=== PATIENT | male | born 1950 | race Asian ===

== ENCOUNTER 2017-08-01 10:50 | Inpatient (IN) | payer MEDICAID ==
[~2017-08-01] VITALS: Ht 162.6 cm; Wt 69.9 kg
[2017-08-01 10:29] VITALS: BP 130/77
[2017-08-01] MEDS ORDERED: Morphine Sulfate 4mg/ml Inj IVP ONE (11:00)
[2017-08-01 11:06] LABS: BILIRUBIN, URINE NEGATIVE (NEGATIVE); COLOR,URINE PALE YELLOW; GLUCOSE, URINE (UA) NEGATIVE (NEGATIVE); KETONES,URINE NEGATIVE (NEGATIVE); LEUKOCYTE ESTERASE ,URINE 1+ (NEGATIVE); NITRITE,URINE NEGATIVE (NEGATIVE); PH,URINE 7 (4.5-8.0); PROTEIN,URINE NEGATIVE (NEGATIVE); UROBILINOGEN,URINE NORMAL MG/DL (0.0-1.0)
[2017-08-01 11:22] LABS: APPEARANCE,URINE SLIGHTLY CLOUDY
--- NOTE | 2017-08-01 12:14 | Emergency Room Report ---
History of Present Illness General Chief Complaint: Abdominal Pain Source: Patient Present Illness HPI 67-year-old male, history of kidney stones, presenting with right-sided abdominal pain for 2 days. States that he also saw blood in his urine. No fever no chills. No nausea or vomiting. Pain is constant, 10 out of 10 Allergies: Coded Allergies: No Known Allergies (Unverified , 08/01/17) Patient History Past Medical History: see triage record Past Surgical History: none Pertinent Family History: none Reviewed Nursing Documentation: PMH: Agreed, PSxH: Agreed Review of Systems All Other Systems: negative except mentioned in HPI Physical Exam Vital Signs Date Time Temp Pulse Resp B/P (MAP) Pulse Ox O2 Delivery O2 Flow Rate FiO2 08/01/17 10:19 98.2 78 16 125/72 98 Room Air 98.2 Sp02 EP Interpretation: reviewed, normal General Appearance: alert, GCS 15, non-toxic, moderate distress Head: normocephalic, atraumatic Eyes: bilateral eye normal inspection, bilateral eye PERRL, bilateral eye EOMI ENT: normal ENT inspection, normal pharynx, normal voice, moist mucus membranes Neck: normal inspection, full range of motion, supple Respiratory: normal inspection, lungs clear, normal breath sounds, no respiratory distress, no retraction, no wheezing, speaking full sentences, chest symmetrical Cardiovascular #1: normal inspection, regular rate, rhythm, no edema, normal capillary refill Cardiovascular #2: 2+ radial (R), 2+ radial (L) Gastrointestinal: other - Right lower quadrant abdominal tenderness, no guarding no rebound, no CVA tenderness bilaterally Genitourinary: no CVA tenderness Musculoskeletal: normal inspection, back normal, normal range of motion, non- tender Neurologic: normal inspection, alert, oriented x3, responsive, motor strength/ tone normal, sensory intact, normal gait, speech normal Psychiatric: normal inspection, judgement/insight normal, memory normal Skin: normal inspection, normal color, no rash, warm/dry, well hydrated, normal turgor Medical Decision Making Diagnostic Impression: Primary Impression: Nephrolithiasis Additional Impression: Intractable abdominal pain ER Course 67-year-old male, right-sided abdominal pain, hematuria DDX: Kidney stones, UTI, pyelonephritis, AAA, appendicitis, diverticulitis Plan: Obtain labs, ua, EKG, CT ER course: Patient has been monitored during ED stay, HD stable Given fluids and morphine patient with large R pelvis stone Disposition: Patient is to be admitted to [facility] D/W hospitalist Dr Maldonado Please note that this Emergency Department Report was dictated using walkbycorn husker machine operator technology software, occasionally this can lead to erroneous entry secondary to interpretation by the dictation equipment. EKG Diagnostic Results EP Interpretation: Yes Rate sinus bradycardia Rhythm: NSR ST Segments: No acute changes ASA given to patient: No Rhythm Strip EP Interpretation: Yes Rate: 60 Rhythm: NSR, no PVCs, no ectopy Laboratory Tests Test 08/01/17 10:40 08/01/17 12:30 Urine Color Pale yellow Urine Appearance Slightly cloudy Urine pH 7 (4.5-8.0) Urine Specific [place] 1.005 (1.005-1.035) Urine Protein Negative (NEGATIVE) Urine Glucose (UA) Negative (NEGATIVE) Urine Ketones Negative (NEGATIVE) Urine Occult Blood 5+ (NEGATIVE) H Urine Nitrite Negative (NEGATIVE) Urine Bilirubin Negative (NEGATIVE) Urine Urobilinogen Normal MG/DL (0.0-1.0) Urine Leukocyte Esterase 1+ (NEGATIVE) H Urine RBC 30-40 /HPF (0 - 0) H Urine WBC 0-2 /HPF (0 - 0) Urine Squamous Epithelial Cells None /LPF (NONE/OCC) Urine Bacteria Occasional /HPF (NONE) White Blood Count 6.2 K/UL (4.8-10.8) Red Blood Count 4.46 M/UL (4.70-6.10) L Hemoglobin 14.1 G/DL (14.2-18.0) L Hematocrit 41.5 % (42.0-52.0) L Mean Corpuscular Volume 93 FL (80-99) Mean Corpuscular Hemoglobin 31.7 PG (27.0-31.0) H Mean Corpuscular Hemoglobin Concent 34.1 G/DL (32.0-36.0) Red Cell Distribution Width 12.0 % (11.6-14.8) Platelet Count 226 K/UL (150-450) Mean Platelet Volume 5.8 FL (6.5-10.1) L Neutrophils (%) (Auto) 65.8 % (45.0-75.0) Lymphocytes (%) (Auto) 22.1 % (20.0-45.0) Monocytes (%) (Auto) 8.3 % (1.0-10.0) Eosinophils (%) (Auto) 2.3 % (0.0-3.0) Basophils (%) (Auto) 1.5 % (0.0-2.0) Prothrombin Time 9.8 SEC (9.30-11.50) Prothrombin Time INR 0.9 (0.9-1.1) PTT 28 SEC (23-33) Sodium Level 141 MMOL/L (136-145) Potassium Level 3.8 MMOL/L (3.5-5.1) Chloride Level 108 MMOL/L (98-107) H Carbon Dioxide Level 29 MMOL/L (21-32) Anion Gap 4 mmol/L (5-15) L Blood Urea Nitrogen 9 mg/dL (7-18) Creatinine 0.7 MG/DL (0.55-1.30) Estimate Glomerular Filtration Rate > 60 mL/min (>60) Glucose Level 96 MG/DL (74-106) Calcium Level 8.7 MG/DL (8.5-10.1) Total Bilirubin 0.5 MG/DL (0.2-1.0) Aspartate Amino Transferase (AST) 18 U/L (15-37) Alanine Aminotransferase (ALT) 33 U/L (12-78) Alkaline Phosphatase 56 U/L (46-116) Total Protein 6.6 G/DL (6.4-8.2) Albumin 3.3 G/DL (3.4-5.0) L Globulin 3.3 g/dL Albumin/Globulin Ratio 1.0 (1.0-2.7) Lipase 194 U/L (73-393) CT/MRI/US Diagnostic Results CT/MRI/US Diagnostic Results : Imaging Test Ordered: CT abdo pelvis Impression Findings: 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 [place] of the right kidney is deviated. The right kidney is [id number] degrees along its long axis, with the hilum facing laterally. Within the right renal pelvis, there is an aggregation of multiple large calculi. The largest of these measures 24 x 7 mm. This extends to a slight extent into an interpolar region infundibulum. There is no hydronephrosis. There is slight infiltration of the peripelvic and proximal periureteral fat. No ureteral calculus demonstrated. 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 The left kidney is normally situated. No left renal or ureteral calculi demonstrated. No left hydronephrosis or hydroureter. Lack of IV contrast limits assessment of the renal parenchyma. The left kidney demonstrates an upper pole and a lower pole cyst. No right renal mass or cyst demonstrated. The prostate is somewhat prominent, contains calcifications. The bladder is unremarkable. Lack of IV contrast limits assessment of the other solid organs. The liver demonstrates a cyst in segment IVb, as well as other subcentimeter low- attenuation lesions which are too small to characterize. The gallbladder, bile ducts, pancreas, spleen, adrenals are unremarkable. No retroperitoneal or mesenteric mass or adenopathy. No pelvic mass or adenopathy. The appendix is normal. No evidence of diverticulosis or diverticulitis. No small bowel distention. No free or loculated intraperitoneal air or fluid. The duodenum, stomach, distal esophagus are unremarkable. The heart is mildly enlarged. The lung bases demonstrate posterior dependent atelectatic changes. The bones are unremarkable except for degenerative spondylosis changes of the lower lumbar spine. Impression: Multiple large right renal pelvic calculi. No evidence of ureteral calculi or hydronephrosis Infiltration of the right renal parapelvic and proximal periureteral fat, could indicate a component of pyelitis/ureteritis related to the above Abnormal location and axis of the right kidney, as described Incidental finding of left renal cysts Hepatic cyst. Subcentimeter low-attenuation hepatic lesions which are too small to characterize. No further follow-up necessary Mild cardiomegaly Bilateral posterior dependent pulmonary atelectatic changes Other findings as noted, including degenerative spondylosis, prostate calcifications Last Vital Signs Date Time Temp Pulse Resp B/P (MAP) Pulse Ox O2 Delivery O2 Flow Rate FiO2 08/01/17 11:39 97.8 08/01/17 10:29 65 19 130/77 9 Room Air Disposition: ADMITTED INPATIENT Condition: Irving Figueredo M.D. Aug 01, 2017 12:13
--- NOTE | 2017-08-01 12:22 | Diagnostic Imaging Report ---
Indication: Right-sided flank pain, hematuria, history of kidney stones Technique: Spiral acquisitions obtained through the abdomen and pelvis. No oral or IV contrast utilized, per urinary stone protocol. Multiplanar reconstructions were generated. Total dose length product 602.71 mGycm. CTDIvol(s) 12.1 mGy. 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 [place] of the right kidney is deviated. The right kidney is degrees along its long axis, with the hilum facing laterally. Within the right renal pelvis, there is an aggregation of multiple large calculi. The largest of these measures 24 x 7 mm. This extends to a slight extent into an interpolar region infundibulum. There is no hydronephrosis. There is slight infiltration of the peripelvic and proximal periureteral fat. No ureteral calculus demonstrated. 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 The left kidney is normally situated. No left renal or ureteral calculi demonstrated. No left hydronephrosis or hydroureter. Lack of IV contrast limits assessment of the renal parenchyma. The left kidney demonstrates an upper pole and a lower pole cyst. No right renal mass or cyst demonstrated. The prostate is somewhat prominent, contains calcifications. The bladder is unremarkable. Lack of IV contrast limits assessment of the other solid organs. The liver demonstrates a cyst in segment IVb, as well as other subcentimeter low-attenuation lesions which are too small to characterize. The gallbladder, bile ducts, pancreas, spleen, adrenals are unremarkable. No retroperitoneal or mesenteric mass or adenopathy. No pelvic mass or adenopathy. The appendix is normal. No evidence of diverticulosis or diverticulitis. No small bowel distention. No free or loculated intraperitoneal air or fluid. The duodenum, stomach, distal esophagus are unremarkable. The heart is mildly enlarged. The lung bases demonstrate posterior dependent atelectatic changes. The bones are unremarkable except for degenerative spondylosis changes of the lower lumbar spine. Impression: Multiple large right renal pelvic calculi. No evidence of ureteral calculi or hydronephrosis Infiltration of the right renal parapelvic and proximal periureteral fat, could indicate a component of pyelitis/ureteritis related to the above Abnormal location and axis of the right kidney, as described Incidental finding of left renal cysts Hepatic cyst. Subcentimeter low-attenuation hepatic lesions which are too small to characterize. No further follow-up necessary Mild cardiomegaly Bilateral posterior dependent pulmonary atelectatic changes Other findings as noted, including degenerative spondylosis, prostate calcifications The CT scanner at [facility] is accredited by the [employer] and the scans are performed using protocols designed to limit radiation exposure to as low as reasonably achievable to attain images of sufficient resolution adequate for diagnostic evaluation.
[2017-08-01 12:30] VITALS: BP 139/70
[2017-08-01 13:02] LABS: BASOPHILS % (AUTO) 1.5 % (0.0-2.0); EOSINOPHILS % (AUTO) 2.3 % (0.0-3.0); HEMATOCRIT 41.5 % (42.0-52.0); HEMOGLOBIN 14.1 G/DL (14.2-18.0); LYMPHOCYTES % (AUTO) 22.1 % (20.0-45.0); MEAN CORPUSCULAR VOLUME 93 FL (80-99); MONOCYTES % (AUTO) 8.3 % (1.0-10.0); NEUTROPHILS % (AUTO) 65.8 % (45.0-75.0); PLATELET COUNT 226 K/UL (150-450); RED BLOOD COUNT 4.46 M/UL (4.70-6.10); WHITE BLOOD COUNT 6.2 K/UL (4.8-10.8)
[2017-08-01 13:05] LABS: INR 0.9 (0.9-1.1)
[2017-08-01 13:08] LABS: ANION GAP 4 mmol/L (5-15); BLOOD UREA NITROGEN 9 mg/dL (7-18); CALCIUM 8.7 MG/DL (8.5-10.1); CARBON DIOXIDE 29 MMOL/L (21-32); CHLORIDE 108 MMOL/L (98-107); CREATININE 0.7 MG/DL (0.55-1.30); POTASSIUM 3.8 MMOL/L (3.5-5.1); SODIUM 141 MMOL/L (136-145)
[2017-08-01 13:12] LABS: ALANINE AMINOTRANSFERASE 33 U/L (12-78); ALBUMIN 3.3 G/DL (3.4-5.0); ALKALINE PHOSPHATASE 56 U/L (46-116); ASPARTATE AMINO TRANSFERASE 18 U/L (15-37); BILIRUBIN,TOTAL 0.5 MG/DL (0.2-1.0)
[2017-08-01] MEDS ORDERED: cefTRIAXone 1 GM in NS 55 ML IVPB ONE (13:30)
[2017-08-01 14:00] VITALS: BP 114/62
[2017-08-01] MEDS ORDERED: NKM (14:00)
[2017-08-01 16:00] VITALS: BP 118/64
[2017-08-01 20:00] VITALS: BP 114/69
[2017-08-02] VITALS: BP 112/70
[2017-08-02 04:00] VITALS: BP 114/74
[2017-08-02 08:07] VITALS: BP 111/68
[2017-08-02 09:41] LABS: BASOPHILS % (AUTO) 1.5 % (0.0-2.0); EOSINOPHILS % (AUTO) 3.1 % (0.0-3.0); HEMATOCRIT 43.5 % (42.0-52.0); HEMOGLOBIN 14.9 G/DL (14.2-18.0); LYMPHOCYTES % (AUTO) 27.4 % (20.0-45.0); MEAN CORPUSCULAR VOLUME 93 FL (80-99); NEUTROPHILS % (AUTO) 59.9 % (45.0-75.0); PLATELET COUNT 249 K/UL (150-450); RED BLOOD COUNT 4.68 M/UL (4.70-6.10); RED CELL DISTRIBUTION WIDTH 12.3 % (11.6-14.8)
[2017-08-02 10:08] LABS: ALANINE AMINOTRANSFERASE 38 U/L (12-78); ALBUMIN 3.3 G/DL (3.4-5.0); ALBUMIN/GLOBULIN RATIO 0.9 (1.0-2.7); ALKALINE PHOSPHATASE 58 U/L (46-116); ANION GAP 6 mmol/L (5-15); ASPARTATE AMINO TRANSFERASE 20 U/L (15-37); BILIRUBIN,TOTAL 0.5 MG/DL (0.2-1.0); BLOOD UREA NITROGEN 13 mg/dL (7-18); CALCIUM 8.8 MG/DL (8.5-10.1); CARBON DIOXIDE 32 MMOL/L (21-32); CHLORIDE 106 MMOL/L (98-107); CREATININE 0.9 MG/DL (0.55-1.30); POTASSIUM 3.6 MMOL/L (3.5-5.1); SODIUM 143 MMOL/L (136-145)
[2017-08-02 12:15] VITALS: BP 107/71
[2017-08-02] MEDS ORDERED: Morphine Sulfate 4mg/ml Inj IVP PRN (14:45)
[2017-08-02] MEDS ORDERED: Nitroglycerin Subl 0.4mg tab SL PRN (14:45)
[2017-08-02] MEDS ORDERED: Morphine Sulfate 4mg/ml Inj IV PRN (14:45)
[2017-08-02] MEDS ORDERED: Mylanta II UD 30ml ORAL PRN (14:45)
[2017-08-02] MEDS ORDERED: Miralax 17gm pkt ORAL PRN (14:45)
--- NOTE | 2017-08-02 14:48 | Consultation ---
History of Present Illness General Date patient seen: Aug 02, 2017 Chief Complaint: Abdominal Pain Reason for Consultation: inpatient management Present Illness HPI 67-year-old male, history of kidney stones, presenting with right-sided abdominal pain for 2 days. States that he also saw blood in his urine. No fever no chills. No nausea or vomiting. Pain is constant, 10 out of 10 Allergies: Coded Allergies: No Known Allergies (Unverified , 08/01/17) Medication History Scheduled No Known Medications* (NKM - No Known Medications*), 0 ., (Reported) Patient History Healthcare decision maker Resuscitation status Full Code Advanced Directive on File Past Medical/Surgical History Past Medical/Surgical History: (1) Nephrolithiasis Review of Systems Gastrointestinal: Reports: abdominal pain All Other Systems: negative except mentioned in HPI Physical Exam General Appearance: WD/WN Lines, tubes and drains: central line HEENT: normocephalic, atraumatic Neck: normal alignment Respiratory/Chest: chest wall non-tender, lungs clear Cardiovascular/Chest: normal peripheral pulses, normal rate Abdomen: non tender Genitourinary/Rectal: normal rectal exam Last 24 Hour Vital Signs Date Time Temp Pulse Resp B/P (MAP) Pulse Ox O2 Delivery O2 Flow Rate FiO2 08/02/17 12:15 98.2 74 20 107/71 96 Room Air 98.2 08/02/17 08:07 98.1 75 21 111/68 95 Room Air 98.1 08/02/17 04:00 97.9 71 20 114/74 94 97.9 08/02/17 00:00 97.8 65 19 112/70 93 97.8 08/01/17 20:00 97.7 65 19 114/69 94 97.7 08/01/17 16:00 97.7 57 20 118/64 99 97.7 Intake and Output 08/01/17 08/02/17 19:00 07:00 Intake Total 1575 ml Balance 1575 ml Intake Oral 520 ml IV Total 1055 ml # Voids 4 4 Laboratory Tests Test 08/02/17 08:00 White Blood Count 5.0 K/UL (4.8-10.8) Red Blood Count 4.68 M/UL (4.70-6.10) L Hemoglobin 14.9 G/DL (14.2-18.0) Hematocrit 43.5 % (42.0-52.0) Mean Corpuscular Volume 93 FL (80-99) Mean Corpuscular Hemoglobin 31.7 PG (27.0-31.0) H Mean Corpuscular Hemoglobin Concent 34.2 G/DL (32.0-36.0) Red Cell Distribution Width 12.3 % (11.6-14.8) Platelet Count 249 K/UL (150-450) Mean Platelet Volume 5.9 FL (6.5-10.1) L Neutrophils (%) (Auto) 59.9 % (45.0-75.0) Lymphocytes (%) (Auto) 27.4 % (20.0-45.0) Monocytes (%) (Auto) 8.0 % (1.0-10.0) Eosinophils (%) (Auto) 3.1 % (0.0-3.0) H Basophils (%) (Auto) 1.5 % (0.0-2.0) Sodium Level 143 MMOL/L (136-145) Potassium Level 3.6 MMOL/L (3.5-5.1) Chloride Level 106 MMOL/L (98-107) Carbon Dioxide Level 32 MMOL/L (21-32) Anion Gap 6 mmol/L (5-15) Blood Urea Nitrogen 13 mg/dL (7-18) Creatinine 0.9 MG/DL (0.55-1.30) Estimat Glomerular Filtration Rate > 60 mL/min (>60) Glucose Level 130 MG/DL (74-106) H Calcium Level 8.8 MG/DL (8.5-10.1) Total Bilirubin 0.5 MG/DL (0.2-1.0) Aspartate Amino Transf (AST/SGOT) 20 U/L (15-37) Alanine Aminotransferase (ALT/SGPT) 38 U/L (12-78) Alkaline Phosphatase 58 U/L (46-116) Total Protein 6.8 G/DL (6.4-8.2) Albumin 3.3 G/DL (3.4-5.0) L Globulin 3.5 g/dL Albumin/Globulin Ratio 0.9 (1.0-2.7) L Height (Feet): 5 Height (Inches): 4.00 Weight (Pounds): 154 Medications Current Medications Medications (Trade) Dose Ordered Sig/Mae Route PRN Reason Start Time Stop Time Status Last Admin Dose Admin Acetaminophen (Tylenol) 650 mg Q4H PRN ORAL Mild Pain/Temp > 100.5 08/01/17 14:45 08/31/17 14:44 Ceftriaxone Sodium 1 gm/ Sodium Chloride 55 ml @ 110 mls/hr Q24H IVPB 08/02/17 14:00 08/09/17 23:59 Assessment/Plan Problem List: (1) Nephrolithiasis ICD Codes: N20.0 - Calculus of kidney SNOMED: 28770196, [id number] (2) Intractable abdominal pain ICD Codes: R10.9 - Unspecified abdominal pain SNOMED: 12608802, [id number] Assessment/Plan npo Iv [id number] Urology evaluation pain management RAÚL ESCALANTE Aug 02, 2017 14:48
--- NOTE | 2017-08-02 15:10 | Cardiology Report ---
APPROVED REPORT EKG Measurement Heart [id number] Sinus bradycardia Minimal voltage criteria for LVH, may be normal variant Borderline ECG
[2017-08-02] MEDS: cefTRIAXone 1 GM in NS 55 ML IVPB SCH (15:55)
[2017-08-02] MEDS: D5 1/2NS 1,000 ML IV SCH (15:56)
[2017-08-02 16:00] VITALS: BP 110/72
[2017-08-02 17:08] LABS: APPEARANCE,URINE CLEAR; BILIRUBIN, URINE NEGATIVE (NEGATIVE); COLOR,URINE PALE YELLOW; GLUCOSE, URINE (UA) 1+ (NEGATIVE); KETONES,URINE NEGATIVE (NEGATIVE); LEUKOCYTE ESTERASE ,URINE NEGATIVE (NEGATIVE); NITRITE,URINE NEGATIVE (NEGATIVE); PH,URINE 7 (4.5-8.0); PROTEIN,URINE 1+ (NEGATIVE); UROBILINOGEN,URINE NORMAL MG/DL (0.0-1.0)
[2017-08-02 20:00] VITALS: BP 117/75
--- NOTE | 2017-08-02 20:12 | Consultation ---
History of Present Illness General Date patient seen: Aug 02, 2017 Time patient seen: 20:08 Chief Complaint: Abdominal Pain Reason for Consultation: inpatient management Present Illness HPI 67 yo male with right sided abdominal pain yesterday. Feels better after one dose of Morphine yesterday. Tolerating diet. Known history of kidney stones. Allergies: Coded Allergies: No Known Allergies (Unverified , 08/01/17) Medication History Scheduled No Known Medications* (NKM - No Known Medications*), 0 ., (Reported) Patient History Limited by: language barrier, age History Provided By: Patient, Medical Record Healthcare decision maker Resuscitation status Full Code Advanced Directive on File Past Medical/Surgical History Past Medical/Surgical History: (1) Nephrolithiasis Review of Systems All Other Systems: negative except mentioned in HPI Physical Exam General Appearance: no apparent distress, alert HEENT: atraumatic Cardiovascular/Chest: normal peripheral pulses, normal rate Abdomen: non tender, soft Neurologic: alert, oriented x 3 Last 24 Hour Vital Signs Date Time Temp Pulse Resp B/P (MAP) Pulse Ox O2 Delivery O2 Flow Rate FiO2 08/02/17 16:00 99.0 69 20 110/72 95 99.0 08/02/17 12:15 98.2 74 20 107/71 96 Room Air 98.2 08/02/17 08:07 98.1 75 21 111/68 95 Room Air 98.1 08/02/17 04:00 97.9 71 20 114/74 94 97.9 08/02/17 00:00 97.8 65 19 112/70 93 97.8 Intake and Output 08/01/17 08/02/17 19:00 07:00 Intake Total 1575 ml Balance 1575 ml Intake Oral 520 ml IV Total 1055 ml # Voids 4 4 # Bowel Movements 1 Laboratory Tests Test 08/02/17 08:00 08/02/17 16:30 White Blood Count 5.0 K/UL (4.8-10.8) Red Blood Count 4.68 M/UL (4.70-6.10) L Hemoglobin 14.9 G/DL (14.2-18.0) Hematocrit 43.5 % (42.0-52.0) Mean Corpuscular Volume 93 FL (80-99) Mean Corpuscular Hemoglobin 31.7 PG (27.0-31.0) H Mean Corpuscular Hemoglobin Concent 34.2 G/DL (32.0-36.0) Red Cell Distribution Width 12.3 % (11.6-14.8) Platelet Count 249 K/UL (150-450) Mean Platelet Volume 5.9 FL (6.5-10.1) L Neutrophils (%) (Auto) 59.9 % (45.0-75.0) Lymphocytes (%) (Auto) 27.4 % (20.0-45.0) Monocytes (%) (Auto) 8.0 % (1.0-10.0) Eosinophils (%) (Auto) 3.1 % (0.0-3.0) H Basophils (%) (Auto) 1.5 % (0.0-2.0) Sodium Level 143 MMOL/L (136-145) Potassium Level 3.6 MMOL/L (3.5-5.1) Chloride Level 106 MMOL/L (98-107) Carbon Dioxide Level 32 MMOL/L (21-32) Anion Gap 6 mmol/L (5-15) Blood Urea Nitrogen 13 mg/dL (7-18) Creatinine 0.9 MG/DL (0.55-1.30) Estimat Glomerular Filtration Rate > 60 mL/min (>60) Glucose Level 130 MG/DL (74-106) H Calcium Level 8.8 MG/DL (8.5-10.1) Total Bilirubin 0.5 MG/DL (0.2-1.0) Aspartate Amino Transf (AST/SGOT) 20 U/L (15-37) Alanine Aminotransferase (ALT/SGPT) 38 U/L (12-78) Alkaline Phosphatase 58 U/L (46-116) Total Protein 6.8 G/DL (6.4-8.2) Albumin 3.3 G/DL (3.4-5.0) L Globulin 3.5 g/dL Albumin/Globulin Ratio 0.9 (1.0-2.7) L Urine Color Pale yellow Urine Appearance Clear Urine pH 7 (4.5-8.0) Urine Specific [place] 1.015 (1.005-1.035) Urine Protein 1+ (NEGATIVE) H Urine Glucose (UA) 1+ (NEGATIVE) H Urine Ketones Negative (NEGATIVE) Urine Occult Blood 4+ (NEGATIVE) H Urine Nitrite Negative (NEGATIVE) Urine Bilirubin Negative (NEGATIVE) Urine Urobilinogen Normal MG/DL (0.0-1.0) Urine Leukocyte Esterase Negative (NEGATIVE) Urine RBC 5-10 /HPF (0 - 0) H Urine WBC 0-2 /HPF (0 - 0) Urine Squamous Epithelial Cells None /LPF (NONE/OCC) Urine Bacteria Few /HPF (NONE) Height (Feet): 5 Height (Inches): 4.00 Weight (Pounds): 154 Medications Current Medications Medications (Trade) Dose Ordered Sig/Mae Route PRN Reason Start Time Stop Time Status Last Admin Dose Admin Acetaminophen (Tylenol) 650 mg Q4H PRN ORAL Mild Pain/Temp > 100.5 08/01/17 14:45 08/31/17 14:44 Al Hydroxide/Mg Hydroxide (Mylanta II) 30 ml Q6H PRN ORAL dyspepsia 08/02/17 14:45 09/01/17 14:44 Ceftriaxone Sodium 1 gm/ Sodium Chloride 55 ml @ 110 mls/hr Q24H IVPB 08/02/17 14:00 08/09/17 23:59 08/02/17 15:55 Dextrose (Dextrose 50%) STAT PRN IV Hypoglycemia 08/02/17 14:45 09/01/17 14:44 Dextrose/Sodium Chloride 1,000 ml @ 75 mls/hr [id number] IV 08/02/17 14:45 09/01/17 14:44 08/02/17 15:56 Diphenhydramine HCl (Benadryl) 25 mg Q6H PRN ORAL Itching/Pruritis 08/02/17 14:45 09/01/17 14:44 Morphine Sulfate (Morphine Sulfate) 2 mg EVERY 4 HOURS PRN IVP Moderat Pain (Pain Scale 4-6) 08/02/17 14:45 08/09/17 14:44 Morphine Sulfate (Morphine Sulfate) 4 mg EVERY 2 HOURS PRN IV For Severe Pain (7-10) 08/02/17 14:45 08/09/17 14:44 Nitroglycerin (Ntg) 0.4 mg Q5M X 3 DOSES PRN SL Prn Chest Pain 08/02/17 14:45 09/01/17 14:44 Ondansetron HCl (Zofran) 4 mg Q6H PRN IVP Nausea & Vomiting 08/02/17 14:45 09/01/17 14:44 Polyethylene Glycol (Miralax) 17 gm HSPRN PRN ORAL Constipation 08/02/17 14:45 09/01/17 14:44 Temazepam (Restoril) 15 mg HSPRN PRN ORAL Insomnia 08/02/17 14:45 08/09/17 14:[address]: 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 no hydro, no hydroureter Assessment/Plan Status: stable Assessment/Plan 67 yo male with right sided renal colic. 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 Pain is gone and not taking pain meds. Hematuria due to likely passed stone fragment. Normal renal function. Patient' s kidney stone would require complex percutaneous surgery given pelvic location. Not equipped at this hospital to do that. Would need treatment at higher level of care. Apparently, uninsured. 1. case management eval to activate medicare? 2. no intervention, needs higher level of care to address stone 3. not actively obstructed or in pain. Gabriel Hayden M.D. Aug 02, 2017 20:12
--- NOTE | 2017-08-02 22:45 | Consultation ---
DATE OF CONSULTATION: 08/02/2017 INFECTIOUS DISEASE CONSULTATION CONSULTING PHYSICIAN: Lazaro Hartley M.D. PRIMARY ATTENDING PHYSICIAN: Milla Maher M.D. REASON FOR CONSULTATION: Urinary tract infection and pyelonephritis. HISTORY OF PRESENT ILLNESS: The patient is a 67-year-old male admitted from home yesterday because of right-sided abdominal pain and hematuria. The patient has history of kidney stones since 1980s. Pain usually comes with activity and walking. It is on and off in right side of the abdomen. No fever. No chills. No systemic syndrome. PAST MEDICAL HISTORY: Kidney stone and had a surgery on the neck before. MEDICATIONS: Getting Tylenol. Got a dose of ceftriaxone in the ER. ALLERGIES: No known drug allergies. SOCIAL HISTORY: . Denies alcohol, drug abuse, or smoking. 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 He is from [place]. Lives in [facility] for 40 years. REVIEW OF SYSTEMS: No fever. No chills. No nausea. No vomiting. No coughing. No chest pain. Abdominal pain as mentioned. Hematuria. No other symptoms. PHYSICAL EXAMINATION: VITAL SIGNS: No fever, temperature 98.2, pulse 74, and blood pressure 107/71. GENERAL APPEARANCE: Seems normal weight, well developed, in no acute distress. HEAD AND NECK: Clarissa conjunctivae. HEART: S1 and S2 regular. LUNGS: Clear. ABDOMEN: Soft and nontender. EXTREMITIES: No edema. NEUROLOGIC: Awake, alert, and oriented x3. No focal signs. LABORATORY AND DIAGNOSTIC DATA: Sodium 143, potassium 3.6, chloride 106, bicarb 32, BUN 13, creatinine 0.9, and glucose 130. WBC 5, hemoglobin 14.9, hematocrit 43.5, and platelets 249. The patient had a CT scan of the abdomen and pelvis without contrast that showed infiltration of right renal parapelvic and proximal periureteral fat, may be pyelitis or urethritis, hepatic cyst, and mild cardiomegaly. IMPRESSION: 1. Nephrolithiasis. Mainly in the right kidney, there are multiple large stones. 2. May have pyelitis or ureteritis. RECOMMENDATION: We will continue the Rocephin. We will suggest for urologic evaluation. We will obtain urine culture. At the end of my exam, I thank Dr. Maher for involving me in the care of this patient. Lazaro Hartley M.D. DR: OMAR JOB#: [id number] CC: [email or web address]
[2017-08-03] VITALS: BP 109/70
--- NOTE | 2017-08-03 02:00 | History and Physical Report ---
DATE OF ADMISSION: 08/01/2017 NOTE: POOR AUDIO HISTORY OF PRESENT ILLNESS: The patient basically comes in and is admitted for nephrolithiasis, has been having abdominal pain and hematuria for one day. However, this problem is going on intermittently off and on for the past 3 months. The patient does have a history of kidney stones. He is admitted for flank pain. However, he was found to have a large right-sided pelvic renal stone, admitted to Med/Surg. The patient denies having chills. Denies any nausea, vomiting, or diarrhea. Denies rectal bleeding. Denies orthopnea. PAST MEDICAL HISTORY: Significant for kidney stones. PAST SURGICAL HISTORY: None. MEDICATIONS: None. FAMILY HISTORY: Noncontributory. SOCIAL HISTORY: Denies smoking, alcohol, or illicit drugs. REVIEW OF SYSTEMS: HEENT: headaches. RESPIRATORY: Denies shortness of breath or cough. CARDIOVASCULAR: Denies chest pain or orthopnea. GASTROINTESTINAL: . Hematuria for one day. Also, he has been having intermittent abdominal pain for the past three months. EXTREMITIES: Denies pain . CENTRAL NERVOUS SYSTEM: No change in vision or speech pattern. PHYSICAL EXAMINATION: VITAL SIGNS: Temperature 97.7 degrees, pulse is 67, and blood pressure 118/64. HEENT: PERRLA. NECK: Supple. No lymphadenopathy. CHEST: Clear to auscultation. CARDIOVASCULAR: Regular rate and rhythm. ABDOMEN: Soft, nontender, and nondistended. No organomegaly. Bowel sounds are present. No rebound tenderness. EXTREMITIES: No edema. NEUROLOGIC: Reflexes equal on both sides. Moves all four extremities. . LABORATORY AND DIAGNOSTIC DATA: WBC of 6.3, hemoglobin 14.1, and platelets of 226. Sodium 141, potassium 3.8, BUN of 9, creatinine of 0.7, and glucose of 96. ASSESSMENT AND PLAN: Kidney stones and large right-sided pelvic renal stone. I have asked and Dr. Mckeon to see the patient for the antibiotic treatment of the kidney stones as well as for possible removal as well as for borderline low potassium. Milla Maher M.D. DR: ASMITA JOB#: [id number] CC:
[2017-08-03 04:00] VITALS: BP 115/71
[2017-08-03] MEDS: D5 1/2NS 1,000 ML IV SCH ×2 (04:52→17:44)
[2017-08-03 07:33] LABS: BASOPHILS % (AUTO) 1.5 % (0.0-2.0); EOSINOPHILS % (AUTO) 4.5 % (0.0-3.0); HEMATOCRIT 40.6 % (42.0-52.0); HEMOGLOBIN 14.2 G/DL (14.2-18.0); MEAN CORPUSCULAR VOLUME 92 FL (80-99); MONOCYTES % (AUTO) 8.4 % (1.0-10.0); NEUTROPHILS % (AUTO) 53.6 % (45.0-75.0); PLATELET COUNT 236 K/UL (150-450); RED CELL DISTRIBUTION WIDTH 12.2 % (11.6-14.8); WHITE BLOOD COUNT 4.7 K/UL (4.8-10.8)
[2017-08-03 07:49] LABS: ALANINE AMINOTRANSFERASE 24 U/L (12-78); ALBUMIN/GLOBULIN RATIO 0.9 (1.0-2.7); ALKALINE PHOSPHATASE 50 U/L (46-116); AMYLASE 60 U/L (25-115); ANION GAP 8 mmol/L (5-15); ASPARTATE AMINO TRANSFERASE 17 U/L (15-37); BILIRUBIN,TOTAL 0.3 MG/DL (0.2-1.0); BLOOD UREA NITROGEN 12 mg/dL (7-18); CALCIUM 8.7 MG/DL (8.5-10.1); CARBON DIOXIDE 26 MMOL/L (21-32); CHLORIDE 107 MMOL/L (98-107); CREATININE 0.8 MG/DL (0.55-1.30); POTASSIUM 3.7 MMOL/L (3.5-5.1); SODIUM 141 MMOL/L (136-145)
[2017-08-03 07:53] LABS: PHOSPHORUS 3.4 MG/DL (2.5-4.9)
[2017-08-03 08:32] VITALS: BP 145/70
[2017-08-03 12:00] VITALS: BP 125/74
--- NOTE | 2017-08-03 13:22 | Infectious Diseases Prog Note ---
Assessment/Plan Assessment/Plan A; Nephrolithiasis ? Pyelitis, Ureteritis P: Continue Rocephin If cultures remain negative will stop antibiotic Subjective ROS Limited/Unobtainable: No Gastrointestinal/Abdominal: Reports: other - on and off pain in right upper abdomen Genitourinary: Reports: hematuria Allergies: Coded Allergies: No Known Allergies (Unverified , 08/01/17) Objective Vital Signs Last 24 Hour Vital Signs Date Time Temp Pulse Resp B/P (MAP) Pulse Ox O2 Delivery O2 Flow Rate FiO2 08/03/17 11:06 98.6 08/03/17 10:36 98.6 08/03/17 08:32 98.6 90 18 145/70 98 Room Air 98.6 08/03/17 04:00 98.3 56 19 115/71 95 Room Air 98.3 08/03/17 00:00 97.7 62 20 109/70 95 97.7 08/02/17 20:00 97.7 92 20 117/75 95 97.7 08/02/17 16:00 99.0 69 20 110/72 95 99.0 Height (Feet): 5 Height (Inches): 4.00 Weight (Pounds): 154 Microbiology Date/Time Source Procedure Growth Status 08/02/17 16:30 Urine,Clean Catch Urine Culture - Preliminary NO GROWTH Resulted Laboratory Tests Test 08/02/17 16:30 08/03/17 06:00 Urine Color Pale yellow Urine Appearance Clear Urine pH 7 (4.5-8.0) Urine Specific [place] 1.015 (1.005-1.035) Urine Protein 1+ (NEGATIVE) H Urine Glucose (UA) 1+ (NEGATIVE) H Urine Ketones Negative (NEGATIVE) Urine Occult Blood 4+ (NEGATIVE) H Urine Nitrite Negative (NEGATIVE) Urine Bilirubin Negative (NEGATIVE) Urine Urobilinogen Normal MG/DL (0.0-1.0) Urine Leukocyte Esterase Negative (NEGATIVE) Urine RBC 5-10 /HPF (0 - 0) H Urine WBC 0-2 /HPF (0 - 0) Urine Squamous Epithelial Cells None /LPF (NONE/OCC) Urine Bacteria Few /HPF (NONE) White Blood Count 4.7 K/UL (4.8-10.8) L Red Blood Count 4.40 M/UL (4.70-6.10) L Hemoglobin 14.2 G/DL (14.2-18.0) Hematocrit 40.6 % (42.0-52.0) L Mean Corpuscular Volume 92 FL (80-99) Mean Corpuscular Hemoglobin 32.2 PG (27.0-31.0) H Mean Corpuscular Hemoglobin Concent 34.9 G/DL (32.0-36.0) Red Cell Distribution Width 12.2 % (11.6-14.8) Platelet Count 236 K/UL (150-450) Mean Platelet Volume 6.1 FL (6.5-10.1) L Neutrophils (%) (Auto) 53.6 % (45.0-75.0) Lymphocytes (%) (Auto) 32.0 % (20.0-45.0) Monocytes (%) (Auto) 8.4 % (1.0-10.0) Eosinophils (%) (Auto) 4.5 % (0.0-3.0) H Basophils (%) (Auto) 1.5 % (0.0-2.0) Activated Partial Thromboplast Time 30 SEC (23-33) Sodium Level 141 MMOL/L (136-145) Potassium Level 3.7 MMOL/L (3.5-5.1) Chloride Level 107 MMOL/L (98-107) Carbon Dioxide Level 26 MMOL/L (21-32) Anion Gap 8 mmol/L (5-15) Blood Urea Nitrogen 12 mg/dL (7-18) Creatinine 0.8 MG/DL (0.55-1.30) Estimat Glomerular Filtration Rate > 60 mL/min (>60) Glucose Level 108 MG/DL (74-106) H Calcium Level 8.7 MG/DL (8.5-10.1) Phosphorus Level 3.4 MG/DL (2.5-4.9) Magnesium Level 2.1 MG/DL (1.8-2.4) Total Bilirubin 0.3 MG/DL (0.2-1.0) Aspartate Amino Transf (AST/SGOT) 17 U/L (15-37) Alanine Aminotransferase (ALT/SGPT) 24 U/L (12-78) Alkaline Phosphatase 50 U/L (46-116) Total Protein 6.3 G/DL (6.4-8.2) L Albumin 3.0 G/DL (3.4-5.0) L Globulin 3.3 g/dL Albumin/Globulin Ratio 0.9 (1.0-2.7) L Amylase Level 60 U/L (25-115) Lipase 149 U/L (73-393) Current Medications Medications (Trade) Dose Ordered Sig/Mae Route PRN Reason Start Time Stop Time Status Last Admin Dose Admin Acetaminophen (Tylenol) 650 mg Q4H PRN ORAL Mild Pain/Temp > 100.5 08/01/17 14:45 08/31/17 14:44 Al Hydroxide/Mg Hydroxide (Mylanta II) 30 ml Q6H PRN ORAL dyspepsia 08/02/17 14:45 09/01/17 14:44 Ceftriaxone Sodium 1 gm/ Sodium Chloride 55 ml @ 110 mls/hr Q24H IVPB 08/02/17 14:00 08/09/17 23:59 08/02/17 15:55 Dextrose (Dextrose 50%) STAT PRN IV Hypoglycemia 08/02/17 14:45 09/01/17 14:44 Dextrose/Sodium Chloride 1,000 ml @ 75 mls/hr [id number] IV 08/02/17 14:45 09/01/17 14:44 08/03/17 04:52 Diphenhydramine HCl (Benadryl) 25 mg Q6H PRN ORAL Itching/Pruritis 08/02/17 14:45 09/01/17 14:44 Morphine Sulfate (Morphine Sulfate) 2 mg EVERY 4 HOURS PRN IVP Moderat Pain (Pain Scale 4-6) 08/02/17 14:45 08/09/17 14:44 Morphine Sulfate (Morphine Sulfate) 4 mg EVERY 2 HOURS PRN IV For Severe Pain (7-10) 08/02/17 14:45 08/09/17 14:44 08/03/17 10:36 Nitroglycerin (Ntg) 0.4 mg Q5M X 3 DOSES PRN SL Prn Chest Pain 08/02/17 14:45 09/01/17 14:44 Ondansetron HCl (Zofran) 4 mg Q6H PRN IVP Nausea & Vomiting 08/02/17 14:45 09/01/17 14:44 Polyethylene Glycol (Miralax) 17 gm HSPRN PRN ORAL Constipation 08/02/17 14:45 09/01/17 14:44 Temazepam (Restoril) 15 mg HSPRN PRN ORAL Insomnia 08/02/17 14:45 08/09/17 14:44 JOHNSON BAH Aug 03, 2017 13:22
[2017-08-03] MEDS: cefTRIAXone 1 GM in NS 55 ML IVPB SCH (13:24)
[2017-08-03 15:56] VITALS: BP 117/72
[2017-08-03 20:00] VITALS: BP 115/74
--- NOTE | 2017-08-03 21:27 | General Progress Note ---
Assessment/Plan Problem List: (1) Nephrolithiasis ICD Codes: N20.0 - Calculus of kidney SNOMED: 53263382, [id number] Status: progressing Assessment/Plan per urologist lacey is not equipped to do surgery to remove kidney stone needs higher level of care per urology so will dc in am if ok w urology Subjective Allergies: Coded Allergies: No Known Allergies (Unverified , 08/01/17) Subjective flank pain Objective Last 24 Hour Vital Signs Date Time Temp Pulse Resp B/P (MAP) Pulse Ox O2 Delivery O2 Flow Rate FiO2 08/03/17 20:00 98.1 65 19 115/74 93 Room Air 98.1 08/03/17 15:56 98.5 64 20 117/72 99 Room Air 98.5 08/03/17 12:00 97.7 66 18 125/74 95 97.7 08/03/17 11:06 98.6 08/03/17 10:36 98.6 08/03/17 08:32 98.6 90 18 145/70 98 Room Air 98.6 08/03/17 04:00 98.3 56 19 115/71 95 Room Air 98.3 08/03/17 00:00 97.7 62 20 109/70 95 97.7 Intake and Output 08/02/17 08/03/17 19:00 07:00 Intake Total 1405 ml 825 ml Balance 1405 ml 825 ml Intake Oral 1200 ml IV Total 205 ml 825 ml # Voids 4 5 Laboratory Tests 08/03/17 06:00: White Blood Count 4.7L, Red Blood Count 4.40L, Hemoglobin 14.2, Hematocrit 40.6L , Mean Corpuscular Volume 92, Mean Corpuscular Hemoglobin 32.2H, Mean Corpuscular Hemoglobin Concent 34.9, Red Cell Distribution Width 12.2, Platelet Count 236, Mean Platelet Volume 6.1L, Neutrophils (%) (Auto) 53.6, Lymphocytes ( %) (Auto) 32.0, Monocytes (%) (Auto) 8.4, Eosinophils (%) (Auto) 4.5H, Basophils (%) (Auto) 1.5, Activated Partial Thromboplast Time 30, Sodium Level 141, Potassium Level 3.7, Chloride Level 107, Carbon Dioxide Level 26, Anion Gap 8, Blood Urea Nitrogen 12, Creatinine 0.8, Estimat Glomerular Filtration Rate > 60, Glucose Level 108H, Calcium Level 8.7, Phosphorus Level 3.4, Magnesium Level 2.1, Total Bilirubin 0.3, Aspartate Amino Transf (AST/SGOT) 17, Alanine Aminotransferase (ALT/SGPT) 24, Alkaline Phosphatase 50, Total Protein 6.3L, Albumin 3.0L, Globulin 3.3, Albumin/Globulin Ratio 0.9L, Amylase Level 60 , Lipase 149 Height (Feet): 5 Height (Inches): 4.00 Weight (Pounds): 154 Cardiovascular: normal rate Abdomen: tender Milla Maher MD Aug 03, 2017 21:27
[2017-08-04] VITALS: BP 131/71
[2017-08-04 04:00] VITALS: BP 128/74
[2017-08-04] MEDS: D5 1/2NS 1,000 ML IV SCH (05:33)
[2017-08-04 08:00] VITALS: BP 129/75
[2017-08-04] MEDS ORDERED: Tubing IV Secondary IV ONE (11:59)
[2017-08-04] MEDS ORDERED: D5 1/2NS 1000ml IV ONE (11:59)
[2017-08-04 12:00] VITALS: BP 131/77
--- NOTE | 2017-08-07 09:57 | Discharge Summary ---
Discharge Summary Hospital Course Date of Admission Aug 01, 2017 at 12:44 Date of Discharge Aug 04, 2017 at 12:00 Admitting Diagnosis nephrolithiasis MALCOM Vivar is a 67 year old male who was admitted on Aug 01, 2017 at 12:44 for Nephrolithiasis Hospital Course dc summary #[id number] Discharge Condition Upon Discharge: stable Discharge Disposition Patient was discharged to Home (01) Discharge Diagnoses: Discharge Instructions Discharge Instructions Special Instructions I have been assigned to complete a D/C Summary on this account. I was not involved in the patient management Allyson Hayes NP ([place]) Aug 07, 2017 09:57
--- NOTE | 2017-08-08 04:45 | Discharge Summary 2 SIG ---
DATE OF ADMISSION: 08/01/2017 DATE OF DISCHARGE: 08/04/2017 REASON FOR ADMISSION: 67-year-old male with apparent history of kidney stones, presented to the emergency department with abdominal pain. He also reported seeing blood in the urine. Urinalysis revealed +5 occult blood. Urinalysis was slightly cloudy, but no evidence of urinary tract infection. Hemoglobin and hematocrit were stable. No leukocytosis. Stable renal parameters, LFT, and lipase. EKG revealed no acute ischemic changes. CT of the abdomen and pelvis revealed multiple large right renal pelvic calculi. No evidence of ureteral calculi or hydronephrosis. Infiltration of the right renal parapelvic and proximal periureteral fat, could be indicative of a component of pyelitis/ureteritis related to the above. The patient was admitted with a diagnosis of nephrolithiasis and intractable abdominal pain. HOSPITAL COURSE: The patient was admitted. The patient was started on IV hydration. Pain management provided. Urology consult was requested. Urologist seen and evaluated the patient and closely reviewed the CT of the abdomen. 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 No obstruction on the scan. At this point, pain was controlled , and the patient was off any analgesic. Hematuria was likely due to a passed stone fragment. The patient's kidney stones would require complex percutaneous surgery given pelvic location. Pain was managed and controlled.The patient was initially started on intravenous antibiotics as per ID management due to possibility of pyelitis/ureteritis. Urine culture was negative. Antibiotics were stopped as per ID recommendations. Per urologist, this hospital was not equipped for performing this kind of procedure. The patient would need a treatment at higher level of care hospital. The patient was counseled how to apply for Medicare since he was uninsured. Urologist cleared patient for discharge. FINAL DIAGNOSES: 1. Renal colic, right sided, resolved. 2. Nephrolithiasis, right kidney. DISCHARGE INSTRUCTIONS: The patient was discharged home. The patient was urged to apply to Medicare as soon as possible. The patient was also advised to go to [facility] if he develops further flank or right-sided abdominal pain or see blood in the urine. Milla Maher M.D. I have been assigned to dictate discharge summary on this account and I was not involved in the patient's management. Allyson Tanneranthony NLiliamPLiliam DR: YOUSIF JOB#: [id number] CC: [email or web address]
== END 2017-08-04 12:00 | disposition home or self-care (01) | DRG 694 ==
LOC: EDBD 10:50 → EMR 12:40 → 4E 12:44 → EDBEDREQ 13:16
DX: N20.0 Calculus of kidney (principal); K76.89 Other specified diseases of liver
CPT/HCPCS: 36415; 74176; 80053; 81001; 81003; 82150; 82962; 83690; 83735; 84100; 85025; 85610; 85730; 87086; 93005; 99285